=== PATIENT | male | born 1990 | race Two or more races ===

== ENCOUNTER 2016-11-22 22:16 | Emergency (ER) | payer MEDICAID ==
[~2016-11-22] VITALS: Ht 175.3 cm; Wt 95.3 kg
[2016-11-22 22:44] VITALS: BP 126/79
== END 2016-11-23 04:38 | disposition left against medical advice (07) ==
LOC: ER 22:22
DX: L02.412 Cutaneous abscess of left axilla (principal); Z53.21 Procedure and treatment not carried out due to patient leaving prior to being seen by health care provider

== ENCOUNTER 2016-11-23 05:39 | Emergency (ER) | payer MEDICAID ==
[~2016-11-23] VITALS: Ht 175.3 cm; Wt 95.3 kg
[2016-11-23 08:20] VITALS: BP 114/63
[2016-11-23] MEDS ORDERED: LIDOCAINE 1% HCL (LOCAL ANESTH.) INJ 20ML MDV IN ONE (08:45)
[2016-11-23] MEDS ORDERED: KETOROLAC TROMETH 60MG/2ML VIAL IM ONE (09:00)
== END 2016-11-23 09:13 | disposition home or self-care (01) ==
LOC: ER 05:41
DX: L02.412 Cutaneous abscess of left axilla (principal); F17.210 Nicotine dependence, cigarettes, uncomplicated; F11.10 Opioid abuse, uncomplicated; F12.10 Cannabis abuse, uncomplicated
CPT/HCPCS: 10060; 96372; 99283; J1885; J2001

== ENCOUNTER 2017-06-15 17:21 | Emergency (ER) | payer MEDICAID ==
[~2017-06-15] VITALS: Ht 177.8 cm; Wt 110.7 kg
[2017-06-15 19:35] VITALS: BP 114/20
== END 2017-06-15 19:50 | disposition home or self-care (01) ==
LOC: ER 17:22
DX: S01.411D Laceration without foreign body of right cheek and temporomandibular area, subsequent encounter (principal); S01.91XD Laceration without foreign body of unspecified part of head, subsequent encounter; Z90.49 Acquired absence of other specified parts of digestive tract; F12.10 Cannabis abuse, uncomplicated; F11.20 Opioid dependence, uncomplicated; X58.XXXD Exposure to other specified factors, subsequent encounter

== ENCOUNTER 2019-03-17 09:33 | Emergency (ER) | payer MEDICAID ==
[~2019-03-17] VITALS: Ht 177.8 cm; Wt 99.8 kg
[2019-03-17 11:28] VITALS: BP 112/71
[2019-03-17] MEDS ORDERED: HYDROcodone-ACET 5/325MG TAB PO ONE (11:45)
[2019-03-17] MEDS ORDERED: LIDOCAINE 1% (LOCAL ANESTH.) PF 5ml SDV ID ONE (11:45)
[2019-03-17] MEDS ORDERED: IBUPROFEN 800 MG TAB PO ONE (13:15)
== END 2019-03-17 13:04 | disposition home or self-care (01) ==
LOC: ER 09:36
DX: L02.413 Cutaneous abscess of right upper limb (principal); F17.200 Nicotine dependence, unspecified, uncomplicated; F12.10 Cannabis abuse, uncomplicated; F14.10 Cocaine abuse, uncomplicated; Z90.49 Acquired absence of other specified parts of digestive tract
CPT/HCPCS: 10060; 10061

== ENCOUNTER 2019-07-14 15:42 | Emergency (ER) | payer MEDICAID ==
[~2019-07-14] VITALS: Ht 177.8 cm; Wt 95.3 kg
[2019-07-14 15:50] VITALS: BP 127/75
[2019-07-14] MEDS ORDERED: ACETAMINOPHEN 325 MG TAB PO ONE ×2 (16:00→16:15)
== END 2019-07-14 18:23 | disposition left against medical advice (07) ==
LOC: ER 15:42
DX: L02.414 Cutaneous abscess of left upper limb (principal); Z53.21 Procedure and treatment not carried out due to patient leaving prior to being seen by health care provider

== ENCOUNTER 2019-07-15 15:16 | Inpatient (IN) | payer MEDICAID ==
[~2019-07-15] VITALS: Ht 177.8 cm; Wt 97.7 kg
[2019-07-15 16:50] LABS: Alcohol, Urine < 3.0 mg/dL (0-5); Amphetamine Screen, Urine POSITIVE (NEGATIVE); Barbiturate Scree,Urine NEGATIVE (NEGATIVE); Benzodiazephine Screen, Urine NEGATIVE (NEGATIVE); Cannabinoid Screen, Urine NEGATIVE (NEGATIVE); Cocaine Screen, Urine NEGATIVE (NEGATIVE); Opiate Scree,Urine POSITIVE (NEGATIVE); Phencyclidine Screen, Urine NEGATIVE (NEGATIVE)
[2019-07-15 17:09] LABS: Urine Bacteria NONE SEEN /hpf (None Seen); Urine Blood Negative /uL (Negative); Urine Mucus MODERATE (None Seen); Urine Specific Gravity 1.031 (1.001-1.035); Urine WBC 186 /hpf (0 - 3)
[2019-07-15] MEDS ORDERED: CLINDAMYCIN 600 MG/4 ML VL IM ONE (17:30)
[2019-07-15] MEDS ORDERED: cefTRIAXone SOD 1,000 MG VL IM ONE (17:30)
[2019-07-15] MEDS ORDERED: CLINDAMYCIN 600MG IV 50 ML IV ONE (18:45)
[2019-07-15] MEDS ORDERED: cefTRIAXone 1GM/50ML D5W 50 ML IV ONE (18:45)
[2019-07-15 19:03] LABS: Basophils # (auto) 0.1 uL; Basophils % (auto) 0.7 % (0.0-2.0); Eosinophils # (auto) 0.5 uL; Mean Corpuscular Hemoglobin 26.8 pg (28.0-32.0); Neutrophils # (auto) 8.5 uL; Red Blood Cells 4.95 10^6/uL (4.5-5.90)
[2019-07-15 19:05] LABS: Eosinophils % (auto) 3.6 % (0.0-7.0); Hematocrit 40.1 % (41.0-53.0); Hemoglobin 13.3 g/dL (13.5-17.5); Lymphocytes % (auto) 22.5 % (10.0-50.0); Mean Corpuscular Hgb Conc. 33.1 g/dL (32.0-36.0); Mean Corpuscular Volume 81.1 fL (80.0-100.0); Monocytes # (auto) 1.2 uL; Neutrophils % (auto) 64.2 % (37.0-80.0); Platelet Count (auto) 316 10^3/uL (140-450); Red Cell Distribution Width 14.4 % (11.8-14.3); White Blood Cell 13.2 10^3/uL (4.4-10.8)
[2019-07-15 19:07] LABS: Calcium 8.1 mg/dL (8.5-10.1); Potassium 3.4 mmol/L (3.5-5.1)
[2019-07-15 19:09] LABS: BUN/Creatinine Ratio 11.1
[2019-07-15 19:11] LABS: Bilirubin, Total 0.4 mg/dL (0.2-1.0); Total Protein 7.4 g/dL (6.4-8.2)
[2019-07-15 19:13] LABS: Lactic Acid w/Reflex 2.1 mmol/L (0.4-2.0)
[2019-07-16] MEDS ORDERED: ACETAMINOPHEN 325 MG TAB PO PRN (00:45)
[2019-07-16] MEDS ORDERED: SODIUM CHLORIDE 0.9% 500 ML IV ONE (00:45)
[2019-07-16] MEDS ORDERED: TEMAZEPAM 15 MG CAP PO PRN (00:45)
[2019-07-16] MEDS ORDERED: SODIUM CHLORIDE 0.9% 1,000 ML IV SCH (00:45)
[2019-07-16] MEDS ORDERED: ONDANSETRON HCL 4 MG/2 ML VIAL IV PRN (00:45)
--- NOTE | 2019-07-16 02:30 | NUR ---
received pt from er nurse poc reviewed
[2019-07-16 02:40] VITALS: BP 108/57
--- NOTE | 2019-07-16 04:05 | NUR ---
pictures taken of left shoulder abscess, draining pus, pictures taken, swab sent to lab, pt has right shoulder healing scar pictures taken
[2019-07-16] MEDS ORDERED: HYDROcodone-ACET 5/325MG TAB PO PRN (04:15)
[2019-07-16] MEDS ORDERED: CLINDAMYCIN 600MG IV 50 ML IV ONE (05:23)
[2019-07-16 05:40] VITALS: BP 96/61
[2019-07-16] MEDS ORDERED: CLINDAMYCIN 600MG IV 50 ML IV SCH ×2 (06:00)
--- NOTE | 2019-07-16 07:02 | NUR ---
report given to am nurse poc reviewed
--- NOTE | 2019-07-16 07:30 | NUR ---
Opening Shift Note Assumed care of patient, awake, alert, and oriented x4. No S/S of distress/SOB or pain. IV is in right lower thorax/armpit and is asymptomatic, intact, patent, and infusing normal saline at 40 mL. Bed is locked and in lowest position and call light is within reach. Instructed on POC and to call for assist PRN, and patient verbalized understanding. Will continue to monitor for changes Q1hr and PRN.
[2019-07-16] MEDS: FAMOTIDINE 20 MG TAB PO SCH ×2 (08:35→22:31)
[2019-07-16 09:00] VITALS: BP 99/56
[2019-07-16] MEDS ORDERED: cefTRIAXone 1GM/50ML D5W 50 ML IV SCH (09:00)
--- NOTE | 2019-07-16 09:00 | NUR ---
Received call from LAB Lab called and confirmed wound culture taken from location of Left Upper Shoulder.
--- NOTE | 2019-07-16 10:30 | NUR ---
WOUND CARE NOTE: IN TO SEE PATIENT PER WOUND CARE REQUEST. PATIENT NOTED UPON ADMIT TO HAVE WOUND TO LEFT SHOULDER. WOUND PHOTO TAKEN AT THAT TIME BY BEDSIDE NURSE FOR REFERENCE. PATIENT ADMITTED WITH DIAGNOSIS OF LEFT SHOULDER ABSCESS. WOUND IS WEEPING MODERATE AMOUNTS OF CLEAR SEROUS DRAINAGE. WOUND CULTURE HAS ALREADY BEEN COLLECTED, SENT TO LAB FOR PROCESSING. WOUND IS NOT OPEN, BUT WEEPING. SKIN IS BRIGHT RED, INDURATED, HOT TO TOUCH. APPLIED OPTIFOAM GENTLE DRESSING. RECOMMEND: SURGICAL CONSULT, WARM COMPRESSES, DAILY/PRN DRESSING CHANGE, DIETARY CONSULT, CONTINUED MONITORING BY WOUND CARE TEAM. Addendum: 07/16/19 at 1446 by Zuly Aguayo RN Amended: Links added.
[2019-07-16] MEDS: SODIUM CHLORIDE 0.9% 1,000 ML IV SCH ×2 (10:45→17:25)
[2019-07-16] MEDS ORDERED: VANCOMYCIN PER PHARMACY 0 MG IV SCH (10:45)
[2019-07-16] MEDS ORDERED: ALBUTEROL SULF 2.5 MG/0.5ML(0.5%) NEB SOLN NEB PRN (11:00)
--- NOTE | 2019-07-16 11:00 | NUR ---
Dr. Tyron MD, at bedside. New orders received.
[2019-07-16] MEDS ORDERED: IPRATROPIUM BROM 0.5 MG/2.5ML INH SOL NEB SCH (12:00)
[2019-07-16] MEDS: PIPERACILLIN-TAZO 4.5GM 100 ML IV SCH ×2 (12:44→18:32)
[2019-07-16 13:00] VITALS: BP 101/57
[2019-07-16 13:03] LABS: Basophils # (auto) 0.1 uL; Eosinophils # (auto) 0.6 uL; Eosinophils % (auto) 8.3 % (0.0-7.0); Hematocrit 38.1 % (41.0-53.0); Hemoglobin 13.1 g/dL (13.5-17.5); Lymphocytes # (auto) 2.3 uL; Mean Corpuscular Hgb Conc. 34.4 g/dL (32.0-36.0); Mean Corpuscular Volume 78.6 fL (80.0-100.0); Monocytes # (auto) 0.6 uL; Monocytes % (auto) 8.2 % (0.0-12.0); Neutrophils # (auto) 3.5 uL; Neutrophils % (auto) 48.5 % (37.0-80.0); Nucleated Red Blood Cells % 0.1 %; Platelet Count (auto) 262 10^3/uL (140-450); Red Blood Cells 4.85 10^6/uL (4.5-5.90); Red Cell Distribution Width 14.3 % (11.8-14.3); White Blood Cell 7.1 10^3/uL (4.4-10.8)
--- NOTE | 2019-07-16 14:00 | NUR ---
Midline nurse at bedside.
[2019-07-16] MEDS ORDERED: METHADONE HCL 10 MG TAB PO ONE (14:15)
--- NOTE | 2019-07-16 14:30 | NUR ---
X2 ATTEMPTS MADE TO INSERT MIDLINE CATHETER PATIENT C/O PAIN TO SITE, CATHETER REMOVED AND MANUAL PRESSURE APPLIED. PRIMARY RN NOTIFIED.
--- NOTE | 2019-07-16 14:49 | NUR ---
Surgical Consult PAMir, at bedside to consult patient.
[2019-07-16 14:57] LABS: Potassium 4.3 mmol/L (3.5-5.1); Sodium 142 mmol/L (136-145)
[2019-07-16 14:58] LABS: Alanine Aminotransferase 70 U/L (16-61); Albumin 2.6 g/dL (3.4-5.0); Alkaline Phosphatase 89 U/L (45-117); Anion Gap 6 (5-15); Aspartate Aminotransferase 41 U/L (15-37); BUN/Creatinine Ratio 14.7; Bilirubin, Total 0.2 mg/dL (0.2-1.0); Blood Urea Nitrogen 11 mg/dL (7-18); Calcium 8.1 mg/dL (8.5-10.1); Carbon Dioxide 28 mmol/L (21-32); Chloride 108 mmol/L (98-107); GFR African American 161 mL/min; GFR Non-African American 133 mL/min; Glucose 113 mg/dL (74-106); Magnesium 2.3 mg/dL (1.6-2.6); Total Protein 6.6 g/dL (6.4-8.2)
--- NOTE | 2019-07-16 15:56 | NUR ---
Discharge planning per consult, patient needs resources for homelessness, and substance abuse. Multiple resources were provided and explained to patient at bedside in addition that upon discharge if he needed clothes, it can be provided for him in addition to a sack lunch and transportation services. Patient verbalized understanding. [facility], [facility], [facility], [employer], [employer], [facility], [employer], [facility] were just some of the many homeless resources provided. [employer], [facility], [facility], [employer], [facility], were a few of the many substance abuse resources provided to the patient. Addendum: 07/16/19 at 1604 by DIPAK SHERMAN Amended: Links added.
[2019-07-16] MEDS: VANCOMYCIN 1,500 MG in D5W 5% 250 ML IV SCH (15:58)
--- NOTE | 2019-07-16 16:13 | NUR ---
assessment Patient is a 28 year old male who is alert and oriented. Prior to admission patient informed me he was homeless and staying in a closet of a business on [address] in [place]. Patient informed me he has been homeless since November. Prior to November patient lived home with his mother and was working until his car was repossessed. Patient informed me he is a Heroin user for the past 10 to 12 years. Patient last used last night. Patient was admitted to the hospital for a left shoulder abscess. Patient informed me he was shooting up and missed his vein and his shoulder became infected. Patient is open to rehab resources. Eleonora noonan will follow up with patient for homeless packet and substance abuse resources. I informed patient he has a right to speak to a hospital social worker regarding all care. I informed patient he has a right to participate in any and all discharge planning. Patient does not have a POA and advanced directive. I have offered patient information on POA and advanced directives. I informed the patient the advantages and benefits of having an Advanced Directive. Patient verbalized understanding and agreed to discharge plan. Addendum: 07/16/19 at 1621 by Lizzy LEVI Amended: Links added.
[2019-07-16] MEDS ORDERED: IPRATROPIUM BROM 0.5 MG/2.5ML INH SOL NEB PRN (16:30)
[2019-07-16 17:00] VITALS: BP 92/41
--- NOTE | 2019-07-16 17:30 | NUR ---
PT ASSESSED FOR PRN MED NEB TX. SPO2 96% ON RA, HR 91. PT DENIES ANY RESPIRATORY DISTRESS. NO TX INDICATED AT THIS TIME. PT IS AWARE TO HAVE RT PAGED IF TX NEEDED.
--- NOTE | 2019-07-16 18:51 | NUR ---
Changed left shoulder dressing.
--- NOTE | 2019-07-16 21:03 | NUR ---
pt resting with hob up resp even and unlabored, denies pain or discomfort, poc reviewed with pt, all questions and concerns addressed, dressing to upper left shoulder intact
[2019-07-16 22:00] VITALS: BP 99/65
[2019-07-16] MEDS: METHADONE HCL 10 MG TAB PO SCH (22:31)
[2019-07-17] MEDS: PIPERACILLIN-TAZO 4.5GM 100 ML IV SCH ×4 (00:24→18:29)
[2019-07-17] MEDS: SODIUM CHLORIDE 0.9% 1,000 ML IV SCH ×4 (03:17→21:04)
[2019-07-17] MEDS: VANCOMYCIN 1,500 MG in D5W 5% 250 ML IV SCH ×2 (03:18→16:12)
[2019-07-17 05:39] VITALS: BP 105/55
[2019-07-17] MEDS: METHADONE HCL 10 MG TAB PO SCH ×3 (06:11→21:04)
[2019-07-17 08:00] VITALS: BP 112/58
--- NOTE | 2019-07-17 08:00 | NUR ---
ASSESSMENT NOTE PATIENT IS ALERT ORIENTED X4, RESTING IN BED COMFORTABLY, NO DISTRESS NOTED, ABLE TO SELF REPOSITION AND VERBALIS HIS DEMANDS, SWOLLEN NOTED AT THE LEFT SHOULDER, PAIN 0/10, CALL LIGHT WITHIN REACH.
--- NOTE | 2019-07-17 08:13 | NUR ---
Respiratory note: PT ASSESSED FOR PRN MED NEB TX. SPO2 97% ON RA, HR 97, RR 16. PT DENIES ANY RESPIRATORY DISTRESS. NO TX INDICATED AT THIS TIME. PT IS AWARE TO HAVE RT PAGED IF TX NEEDED.
[2019-07-17] MEDS: FAMOTIDINE 20 MG TAB PO SCH ×2 (08:27→21:05)
--- NOTE | 2019-07-17 09:30 | NUR ---
PATIENT HAS A FOUL BODY ODOR, ENCOURAGE TO TAKE A SHOWER, CLEAN HOSPITAL GOWN AND TOWELS GIVEN TO PT, A COMPLETE LINEN CHANGE IS DONE.
--- NOTE | 2019-07-17 10:00 | NUR ---
WOUND CARE PATIENT LEFT WOUND ABCESS PER PATIENT IS A LOT LESS SWOLLEN AND DRY.
--- NOTE | 2019-07-17 11:40 | NUR ---
LAB CALLED WITH A CRITICAL RESULTS, POSITIVE FOR HEP C, PAGE DR NINO
[2019-07-17] MEDS: HYDROcodone-ACET 5/325MG TAB PO PRN ×2 (12:02→21:05)
[2019-07-17 13:29] VITALS: BP 100/66
[2019-07-17 13:59] LABS: Anion Gap 5 (5-15); BUN/Creatinine Ratio 8.4; Blood Urea Nitrogen 7 mg/dL (7-18); Calcium 8.6 mg/dL (8.5-10.1); Carbon Dioxide 26 mmol/L (21-32); Chloride 108 mmol/L (98-107); GFR African American 143 mL/min; GFR Non-African American 118 mL/min; Glucose 123 mg/dL (74-106); Potassium 4.3 mmol/L (3.5-5.1); Sodium 139 mmol/L (136-145)
[2019-07-17 14:26] LABS: Basophils # (auto) 0.1 uL; Basophils % (auto) 0.5 % (0.0-2.0); Eosinophils # (auto) 0.2 uL; Eosinophils % (auto) 1.7 % (0.0-7.0); Hematocrit 49.9 % (41.0-53.0); Lymphocytes # (auto) 2.2 uL; Lymphocytes % (auto) 19.7 % (10.0-50.0); Mean Corpuscular Hgb Conc. 32.1 g/dL (32.0-36.0); Mean Corpuscular Volume 84.1 fL (80.0-100.0); Monocytes # (auto) 0.6 uL; Monocytes % (auto) 5.1 % (0.0-12.0); Nucleated Red Blood Cells % 0.1 %; Platelet Count (auto) 352 10^3/uL (140-450); Red Blood Cells 5.93 10^6/uL (4.5-5.90); Red Cell Distribution Width 14.9 % (11.8-14.3); White Blood Cell 10.9 10^3/uL (4.4-10.8)
[2019-07-17 14:48] LABS: Hepatitis A Total Antibody Positive
[2019-07-17 15:26] LABS: Hepatitis A Ab IgM Negative; Hepatitis B Surface Antigen Negative (Negative)
[2019-07-17 15:28] LABS: Hepatitis B Core Total AB Negative
[2019-07-17 15:29] LABS: Hepatitis B Core IgM Negative
[2019-07-17 15:32] LABS: Hepatitis B Surface Antibody Positive
[2019-07-17 15:50] LABS: Hepatitis C Antibody Positive (Negative)
--- NOTE | 2019-07-17 16:30 | NUR ---
MIDLINE INSERTED BY IRENA RN AT LEFT UPPER ARM, PT TOLERATED WELL
[2019-07-17 17:00] VITALS: BP 107/67
--- NOTE | 2019-07-17 17:06 | NUR ---
PATIENT MOST OF THE DAY GOING OUT TO SMOKE, AND BACK TO HIS ROOM, NO DISTRESS NOTED
--- NOTE | 2019-07-17 17:18 | NUR ---
Midline Placement: Patient educated on need for midline placement. All risks and benefits explained and all questions and concerns addresses prior to procedure. 18g/10cm midline inserted via LEFT BASILIC vein using Ultrasound. Sterile technique utilized. Blood return obtained from SINGLE lumen and flushed easily with NS using proper technique. Midline secured with saline lock; biodisc and occlusive dressing applied. Primary RN notified. Midline lot # [id number].
--- NOTE | 2019-07-17 17:30 | NUR ---
IV removal IV DC'd with sterile technique, catheter fully intact. Pressure dressing applied to site. Patient tolerated procedure well. Discharged with aftercare instructions per MD. NOTE: FROM RT POSTERIOR CHEST
--- NOTE | 2019-07-17 18:40 | NUR ---
PT CONTINUE STABLE, CONTINUE MONITORING
--- NOTE | 2019-07-17 19:16 | NUR ---
Opening Shift Note Assumed care of patient, awake and alert. No S/S of distress/SOB or pain. Instructed on POC and to call for assist PRN, will continue to monitor for changes Q1hr and PRN. Side rails up x2. Bed locked in lowest position. Call light within reach.
--- NOTE | 2019-07-17 21:24 | NUR ---
RT NOTE PT WAS SEEN BY RT FOR PRN HHN TX. PT IS SLEEPING WITHOUT S/S OF SOB OR DISTRESS. HR 66, RR 16, BS CLEAR/DIM, POX 96% ON R/A. NO PRN TX INDICATED AT THIS TIME. CONT ORDERED Addendum: 07/17/19 at 2132 by Kenia Vega RT Amended: Links added.
[2019-07-17 22:00] VITALS: BP 119/61
--- NOTE | 2019-07-18 02:17 | NUR ---
Rounds Patient in bed asleep with no signs of distress/sob/pain. Will continue to monitor.
[2019-07-18] MEDS: SODIUM CHLORIDE 0.9% 1,000 ML IV SCH ×2 (03:29→10:48)
[2019-07-18] MEDS: VANCOMYCIN 1,500 MG in D5W 5% 250 ML IV SCH (03:29)
[2019-07-18 05:00] VITALS: BP 119/80
[2019-07-18] MEDS: PIPERACILLIN-TAZO 4.5GM 100 ML IV SCH ×2 (05:47)
[2019-07-18] MEDS: METHADONE HCL 10 MG TAB PO SCH (05:48)
--- NOTE | 2019-07-18 07:30 | NUR ---
Endorsed care to day shift RN.
[2019-07-18 08:00] VITALS: BP 112/67
--- NOTE | 2019-07-18 08:00 | NUR ---
Opening Shift Note Assumed care of patient, awake and alert. No S/S of distress/SOB or pain. Instructed on POC and to call for assist PRN, will continue to monitor for changes Q1hr and PRN.
--- NOTE | 2019-07-18 09:14 | NUR ---
Respiratory note: Assessed pt for prn medneb tx. HR 86, RR 16, POX 97% on room air. Breath sounds clear/diminished throughout. Pt denies any SOB this morning. No s/s of respiratory distress noted. Medneb tx not indicated at this time. Advised pt to call for RT if breathing tx is needed.
[2019-07-18] MEDS: FAMOTIDINE 20 MG TAB PO SCH (10:47)
[2019-07-18] MEDS: HYDROcodone-ACET 5/325MG TAB PO PRN (10:55)
[2019-07-18] MEDS ORDERED: VANCOMYCIN 1,250 MG in D5W 5% 250 ML IV SCH (11:00)
[2019-07-18 12:00] VITALS: BP 103/48
[2019-07-18] MEDS ORDERED: SODIUM CHLORIDE 0.9% 1,000 ML IV SCH (12:45)
[2019-07-18 13:41] VITALS: BP 103/48
--- NOTE | 2019-07-18 14:30 | NUR ---
Discharge instructions given as ordered. Encourage to follow up with PMD Dr. Vannesa Mccarthy on 08-05-19 at 0845 as instructed. All questions and concerns addressed. Patient verbalized understanding. Medication reconciliation form completed and copy given to patient. Home medications held in Pharmacy returned to patient, and needed vaccines given. IV removed with catheter intact, pressure dressing applied. Patient ambulated with all personal belongings, accompanied by staff. No distress noted at time of departure.
== END 2019-07-18 14:30 | disposition home or self-care (01) | DRG 383 ==
LOC: ER 15:16 → OVERFLOW 15:17 → ER 17:58 → EAST 07-16 02:46
PROVIDERS: ADMIT Nurse Practitioner; ATTEND Internal Medicine
DX: L03.114 Cellulitis of left upper limb (principal); R65.10 Systemic inflammatory response syndrome (SIRS) of non-infectious origin without acute organ dysfunction; E44.1 Mild protein-calorie malnutrition; B19.20 Unspecified viral hepatitis C without hepatic coma; E66.9 Obesity, unspecified; F11.23 Opioid dependence with withdrawal; F19.10 Other psychoactive substance abuse, uncomplicated; F17.210 Nicotine dependence, cigarettes, uncomplicated; G56.00 Carpal tunnel syndrome, unspecified upper limb; Z68.30 Body mass index [BMI] 30.0-30.9, adult; Z71.89 Other specified counseling; Z90.49 Acquired absence of other specified parts of digestive tract; Z71.51 Drug abuse counseling and surveillance of drug abuser
CPT/HCPCS: 36415; 73200; 76881; 80048; 80053; 80074; 80202; 80307; 81001; 83605; 83735; 84443; 85025; 86703; 86704; 86706; 86708; 86803; 87040; 87077; 87186; 87205; 87340; 96361; 96365; 96367; G0378; J0696; J2543; J3490; J7060

== ENCOUNTER 2020-02-13 02:52 | Emergency (ER) | payer MEDICAID ==
[~2020-02-13] VITALS: Ht 177.8 cm; Wt 95.3 kg
[2020-02-13 04:40] LABS: Basophils # (auto) 0 10 ^3/uL (0-0.2); Basophils % (auto) 0.5 % (0.0-2.0); Eosinophils # (auto) 0.4 10 ^3/uL (0-0.8); Eosinophils % (auto) 4.3 % (0.0-7.0); Hematocrit 45.5 % (41.0-53.0); Lymphocytes # (auto) 3.3 10 ^3/uL (0.4-5.4); Lymphocytes % (auto) 38.6 % (10.0-50.0); Mean Corpuscular Hemoglobin 27.5 pg (28.0-32.0); Mean Corpuscular Volume 83.2 fL (80.0-100.0); Monocytes % (auto) 11.1 % (0.0-12.0); Neutrophils # (auto) 3.9 10 ^3/uL (1.6-8.6); Neutrophils % (auto) 45.5 % (37.0-80.0); Nucleated Red Blood Cells % 0.5 %; Platelet Count (auto) 190 10^3/uL (140-450); Red Blood Cells 5.48 10^6/uL (4.5-5.90); Red Cell Distribution Width 14.8 % (11.8-14.3); White Blood Cell 8.6 10^3/uL (4.4-10.8)
[2020-02-13 04:57] LABS: Albumin 3.5 g/dL (3.4-5.0); Calcium 8.5 mg/dL (8.5-10.1)
[2020-02-13 05:03] LABS: BUN/Creatinine Ratio 18.2; Bilirubin, Total 0.3 mg/dL (0.2-1.0)
[2020-02-13] MEDS ORDERED: cefTRIAXone SOD 1,000 MG VL IM ONE (07:15)
[2020-02-13] MEDS ORDERED: IBUPROFEN 800 MG TAB PO ONE (07:15)
[2020-02-13 07:38] VITALS: BP 110/67
== END 2020-02-13 07:42 | disposition home or self-care (01) ==
LOC: ER 02:53
DX: L02.413 Cutaneous abscess of right upper limb (principal); F17.210 Nicotine dependence, cigarettes, uncomplicated; W57.XXXA Bitten or stung by nonvenomous insect and other nonvenomous arthropods, initial encounter; Y93.89 Activity, other specified; Y92.89 Other specified places as the place of occurrence of the external cause; Y99.8 Other external cause status
CPT/HCPCS: 10060; 36415; 80053; 85025; 96372; 99283; J0696

== ENCOUNTER 2023-04-15 04:19 | Emergency (ER) | payer SELFPAY ==
[~2023-04-15] VITALS: Ht 177.8 cm; Wt 108.0 kg
[2023-04-15 04:26] VITALS: BP 117/72
[2023-04-15] MEDS ORDERED: KETOROLAC TROMETH 30 MG/ML 1ML VIAL IV ONE (07:15)
[2023-04-15] MEDS ORDERED: ACETAMINOPHEN 500 MG TAB PO ONE (07:15)
== END 2023-04-15 08:04 | disposition home or self-care (01) ==
LOC: ER 04:19
DX: M79.632 Pain in left forearm (principal); F12.90 Cannabis use, unspecified, uncomplicated; F15.90 Other stimulant use, unspecified, uncomplicated; F17.210 Nicotine dependence, cigarettes, uncomplicated; Z90.49 Acquired absence of other specified parts of digestive tract; Y08.89XA Assault by other specified means, initial encounter; Y93.89 Activity, other specified; Y92.89 Other specified places as the place of occurrence of the external cause; Y99.8 Other external cause status
CPT/HCPCS: 73090; 96374; 99283; J1885

== ENCOUNTER 2024-02-02 18:59 | Emergency (ER) | payer MEDICAID, OTHER ==
[~2024-02-02] VITALS: Ht 175.3 cm; Wt 116.9 kg
[2024-02-02 19:24] VITALS: BP 140/85; PULSE 83; RESP 17; O2SAT 96
== END 2024-02-03 00:30 | disposition left against medical advice (07) ==
LOC: ER 18:59
DX: R35.0 Frequency of micturition (principal); Z53.21 Procedure and treatment not carried out due to patient leaving prior to being seen by health care provider